=== PATIENT | male | born 1995 | race Caucasian/White ===

== ENCOUNTER 2017-08-31 12:28 | Emergency (ER) | payer BC ==
[~2017-08-31] VITALS: Ht 165.1 cm; Wt 61.5 kg
[2017-08-31 12:29] VITALS: BP 130/78; PULSE 102; RESP 12; TEMP 97.9; O2SAT 98
--- NOTE | 2017-08-31 13:44 | PD ---
HPI . Cold symptoms Chief Complaint: Cold / Flu Symptoms Time Seen by Provider: 12:44 Travel History International Travel<30 days: No Contact w/Intl Traveler<30days: No Traveled to known affect area: No History of Present Illness HPI This patient presents with a one-week history of cold symptoms. He states that he is using Mucinex with some relief of his symptoms. He states that he now has some associated abdominal pain. His symptoms are mild. PFSH Past Medical History Respiratory: Yes (ASTHMA) Social History Alcohol Use: No Tobacco Use: No Substance Use: Yes ([place] ) Allergies-Medications (Allergen,Severity, Reaction): Coded Allergies: No Known Allergies (Verified Allergy, Unknown, 08/31/17) Review of Systems Except as stated in HPI: all other systems reviewed are Neg General / Constitutional: No: Fever, Chills HENT: Positive: Congestion Respiratory: Positive: Cough Gastrointestinal: Positive: Abdominal Pain Physical Exam Narrative GENERAL: This patient is wearing a visitor stag. He is lying on the stretcher in no distress at all. SKIN: warm/dry. Good color and turgor. HEAD: Normocephalic. Atraumatic. EYES: Pupils equal and round. No scleral icterus. No injection or drainage. ENT: Minimal clear nasal discharge. Mucous membranes pink and moist. Oropharynx has no erythema. NECK: Trachea midline. Full range of motion without pain.. No cervical lymphadenopathy. CARDIOVASCULAR: Regular rate and rhythm. Heart sounds are normal. RESPIRATORY: No accessory muscle use. Clear to auscultation. Breath sounds equal bilaterally. GASTROINTESTINAL: Abdomen soft. Nontender. Bowel sounds present. Nondistended. MUSCULOSKELETAL: No obvious deformities. NEUROLOGICAL: Awake and alert. No obvious cranial nerve deficits. Motor grossly within normal limits. Normal speech. PSYCHIATRIC: Appropriate mood and affect; insight and judgment normal. Data Data Last Documented VS Vital Signs Date Time Temp Pulse Resp B/P (MAP) Pulse Ox O2 Delivery O2 Flow Rate FiO2 08/31/17 12:49 16 Room Air 08/31/17 12:29 97.9 102 130/78 (95) 98 Orders Orders Ed Discharge Order (08/31/17 13:05) MDM Medical Decision Making Medical Screen Exam Complete: Yes Emergency Medical Condition: Yes Differential Diagnosis Differential diagnosis includes but is not limited to influenza, upper respiratory infection, bronchitis, pneumonia Narrative Course This patient presents with cold symptoms. He looks well. I will discharge him to home with instructions for supportive care. Diagnosis Primary Impression: Upper respiratory disease Patient Instructions: General Instructions, Upper Respiratory Infection (ED) Departure Forms: Tests/Procedures Additional Instructions: I recommend the use of a Neti Pot. You may use a nasal spray such as Afrin for up to 3 days as needed for nasal congestion. You may take an kdal-ano-rlbxxef antihistamine such as Zyrtec, Kiana or Claritin as needed for runny secretions. You may take pseudoephedrine as needed for congestion. You will need to sign for this at the pharmacy. You may take plain Mucinex, 1200 mg twice a day as needed for thick secretions. You may take a cough syrup such as Delsym as needed for cough. Motrin as needed for fever and body aches. Throat lozenges/sprays as needed for sore throat. Warm salt water gargles for sore throat. Hot tea with lemon and honey also helps soothe a sore throat. Disposition: 01 DISCHARGE HOME Condition: Stable Nicole Monson MD Aug 31, 2017 13:44
== END 2017-08-31 13:42 | disposition home or self-care (01) ==
LOC: NEPD 12:28
DX: J39.9 Disease of upper respiratory tract, unspecified (principal)
CPT/HCPCS: 99282